=== PATIENT | female | born 1980 | race Caucasian/White ===

== ENCOUNTER 2025-08-19 16:21 | Emergency (ER) | payer OTHER ==
[~2025-08-19] VITALS: Ht 154.9 cm; Wt 61.7 kg
[~2025-08-19 16:21] MED LIST: DIPH50 PO; FURO20 PO; Naprosyn500 MG PO; POTA10T PO; POTCHL10ER PO; Percocet 5-3251 EACH PO; Prednisone20 MG PO; SULTRIDS PO; WARF5 PO
[2025-08-19] MEDS ORDERED: Ketorolac Tromethamine 15mg Vial IM ONE (18:50)
[2025-08-19 19:56] VITALS: BP 133/75
[2025-08-19] MEDS ORDERED: AMOCLA875 PO (20:32)
== END 2025-08-19 20:30 | disposition home or self-care (01) ==
LOC: ER 16:21
DX: S61.252A Open bite of right middle finger without damage to nail, initial encounter (principal); Z88.0 Allergy status to penicillin; Z88.5 Allergy status to narcotic agent; Z59.89 Other problems related to housing and economic circumstances; W54.0XXA Bitten by dog, initial encounter
CPT/HCPCS: 73140; 96372; 99283-25; A9270; J1885

== ENCOUNTER → 2025-08-27 | Outpatient (CLI) | payer OTHER ==
[~2025-08-27] MED LIST changes: +AMOCLA875 PO
[2025-08-27 18:52] LABS: Creatinine, Urine Random 106.0 mg/dL (27.00-270.00); Microalb/Creat Ratio UR, Rand 33.396 mg/g (0.000-30.000); Microalbumin, Random Urine 35.4 mg/L (0.000-20.000)
== END ==
LOC: LAB SHORT 15:34 → LAB 15:34
PROVIDERS: Student in an Organized Health Care Education/Training Program
DX: E11.9 Type 2 diabetes mellitus without complications (principal)
CPT/HCPCS: 82043; 82570